=== PATIENT | female | born 1985 | race African-American/Black ===

== ENCOUNTER 2019-02-07 10:01 | Emergency (ER) | payer SELFPAY ==
[~2019-02-07] VITALS: Ht 162.6 cm; Wt 65.8 kg
[2019-02-07 10:25] VITALS: BP 111/61
[2019-02-07] MEDS ORDERED: LIDOCAINE 1% Multi-Dose 20 ML VIAL. ONE (10:31)
[2019-02-07] MEDS ORDERED: LIDOCAINE 1% Multi-Dose 20 ML VIAL. INJ ONE (10:45)
[2019-02-07] MEDS ORDERED: HYDR-3164 PO (11:26)
--- NOTE | 2019-02-07 11:27 | PHYS DOC ---
Past Medical History Past Medical History: No Pertinent History, Other Additional Past Medical Histor: bartholin's cyst Past Surgical History: No Surgical History Alcohol Use: Occasionally Drug Use: Benzodiazepine Adult General Chief Complaint Chief Complaint: ABSCESS HPI HPI Patient is a 34 year old female who presents with female who presents to the ED today with a Bartholin's cyst on the right labia that began 3 days ago. Patient reports she's had multiple episodes of Bartholin's cyst before that keep getting drained and recur. Denies any fever. Review of Systems Review of Systems Constitutional: Denies fever or chills [] Musculoskeletal: Denies back pain or joint pain [] Integument: Reports right labia Bartholin's cyst Neurologic: Denies headache, focal weakness or sensory changes [] All other systems were reviewed and found to be within normal limits, except as documented in this note. Current Medications Current Medications Current Medications Medications (Trade) Dose Ordered Sig/Lacey Start Time Stop Time Status Last Admin Dose Admin Lidocaine HCl (Lidocaine 1% 20ml Vial) 20 ml 1X ONCE 02/07/19 10:45 02/07/19 10:46 DC 02/07/19 10:40 20 ML Allergies Allergies Allergies Coded Allergies Type Severity Reaction Last Updated Verified No Known Drug Allergies 09/07/14 No Physical Exam Physical Exam Constitutional: Well developed, well nourished, no acute distress, non-toxic a ppearance. [] Skin: Right labia majora with a moderately sized Bartholin cyst with no drainage, no erythema, no warmth, the area is fluctuant. Back: No tenderness, no CVA tenderness. [] Extremities: No tenderness, no cyanosis, no clubbing, ROM intact, no edema. [] Neurologic: Alert and oriented X 3, normal motor function, normal sensory function, no focal deficits noted. [] Psychologic: Affect normal, judgement normal, mood normal. [] Current Patient Data Vital Signs Vital Signs Date Time Temp Pulse Resp B/P (MAP) Pulse Ox O2 Delivery O2 Flow Rate FiO2 02/07/19 10:25 98.2 79 16 111/61 (78) 100 Room Air 98.2 EKG EKG [] Radiology/Procedures Radiology/Procedures Indication: Right labia majora Bartholin cyst Procedure: The patient was positioned appropriately. Local anesthesia was 1% of lidocaine. An incision was then made over the apex of the lesion and moderate amount of yellow bloody material was expressed. The drainage cavity was irrigated and word catheter was placed and inflated with approx. 5 cc of air. The patients tetanus status updated as needed. The patient tolerated the procedure well. Complications: none.[] Course & Med Decision Making Course & Med Decision Making Pertinent Labs and Imaging studies reviewed. (See chart for details) This is a 34-year-old female patient who presents to the ED today right labia Bartholin cyst that was drained by me as noted in procedures and Word catheter placed. Patient is to return to the ED in 2 days for catheter removal. Tetanus is up to date. Dragon Disclaimer Dragon Disclaimer This electronic medical record was generated, in whole or in part, using a voice recognition dictation system. Departure Departure Impression: Primary Impression: Bartholin's cyst Disposition: HOME, SELF-CARE Condition: STABLE Referrals: NO PCP (PCP) Please return to the ED in 2 days for catheter removal YESSICA MA Jr, MD also follow up with Dr. Ma after we remove the catheter Patient Instructions: Bartholin's Cyst or Abscess Additional Instructions: You have a Bartholin's cyst that was drained in the emergency room and the Word catheter placed in the right labia. Please return to the ED in 2 days for catheter removal as well as wound check. Please apply warm compresses to the affected area twice a day. Keep the area clean and dry. Scripts Hydrocodone/Apap 5-325 (NORCO 5-325 TABLET) 1 Each Tablet 1 TAB PO Q6HRS, #20 TAB Prov: DANIA GONZALEZ APRN 02/07/19 DANIA GONZALEZ APRN Feb 07, 2019 11:26
== END 2019-02-07 11:32 | disposition home or self-care (01) ==
LOC: ER 10:01
DX: N75.0 Cyst of Bartholin's gland (principal)
CPT/HCPCS: 56420; 99284